=== PATIENT | female | born 1985 | race Caucasian/White ===

== ENCOUNTER 2018-04-15 15:11 | Observation (INO) ==
[2018-04-15] MEDS ORDERED: 0.9 % Sodium Chloride 1,000 ML IVC ONE (15:58)
[2018-04-15 16:03] LABS: Bilirubin,Urine Large (Negative); Blood,Urine Negative (Negative); Clarity,Urine Turbid (Clear); Color,Urine Orange (Yellow); Glucose,Urine (UA) Normal (Normal); Ketones,Urine Trace mg/dL (Negative); Leukocyte Esterase,Urine Moderate (Negative); Nitrite,Urine Negative (Negative); Protein,Urine Trace mg/dL (Neg-Trace); Specific Gravity,Urine 1.016 (1.010-1.025); Urobilinogen,Urine Normal (Normal)
[2018-04-15 16:05] LABS: Bacteria,Urine Many per hpf (None-Few); Hyaline Casts,Urine None Seen per lpf (None-Few); Squamous Epithelial Cell,Urine Moderate per lpf (None-Few)
[2018-04-15 16:16] LABS: RBC,Urine 0-3 per hpf (0-3)
[2018-04-15 16:19] LABS: Hematocrit 40.5 % (35.3-44.9); Hemoglobin 14.1 g/dL (11.5-15.4); Mean Corpuscular HGB Conc 34.8 g/dL (31.6-35.5); Mean Corpuscular Hemoglobin 33.1 pg (28.0-33.3); Mean Corpuscular Volume 95.1 fL (83.0-100.0); Mean Platelet Volume 10.5 fL (9.4-12.4); Platelet Count 411 K/mcL (140-400); Red Blood Count 4.26 M/mcL (3.82-4.97); Red Cell Distribution Width 14.7 % (11.5-14.5)
[2018-04-15 16:27] LABS: Prothrombin Time 11.4 Seconds (9.4-12.1)
[2018-04-15 16:51] LABS: Lymphocytes # 3.5 K/mcL (0.6-4.6); Monocytes # 0.3 K/mcL (0.0-1.3); Neutrophils # 3.5 K/mcL (1.6-8.9)
[2018-04-15 16:52] LABS: Platelet Estimate Normal (Normal); Reactive Lymphocytes Present (Not Present)
[2018-04-15 17:06] LABS: Hepatitis B Core IgM Nonreactive (Nonreactive); Hepatitis B Surface Antigen Nonreactive (Nonreactive); Hepatitis C Virus Antibody Nonreactive (Nonreactive)
[2018-04-15 17:08] LABS: Albumin 3.1 g/dL (3.5-5.7); Albumin/Globulin Ratio 0.8 (1.1-2.2); Alkaline Phosphatase 916 Units/L (34-104); Aspartate Amino Transferase 929 Units/L (13-39); BUN/Creatinine Ratio 11 (6-26); Bilirubin,Direct 6.3 mg/dL (0.0-0.2); Bilirubin,Indirect 3.5 mg/dL (0.0-1.2); Bilirubin,Total 9.8 mg/dL (0.3-1.0); Blood Urea Nitrogen 6 mg/dL (6-20); Calcium 8.5 mg/dL (8.6-10.3); Carbon Dioxide 27 mEq/L (23-29); Chloride 98 mEq/L (98-107); Globulin 4.1 g/dL (2.4-3.5); Glucose 102 mg/dL (70-105); Lipase 46 Units/L (11-82); Osmolality,Calculated 268 (280-300); Potassium 3.7 mEq/L (3.5-5.1); Sodium 130 mEq/L (136-145); Total Protein 7.2 g/dL (6.4-8.9); eGFR For Non-African Americans > 60 (> 60)
[2018-04-15 17:18] LABS: Hepatitis A Antibody IgM Reactive (Nonreactive)
[2018-04-15 17:20] LABS: Alanine Aminotransferase > 500 Units/L (7-52)
[2018-04-15] MEDS ORDERED: cephALEXin 250 MG CAPSULE PO ONE (17:37)
[2018-04-15] MEDS ORDERED: Ibuprofen 800 MG TABLET PO ONE (17:53)
[2018-04-15] MEDS ORDERED: Naloxone 0.4 MG/ML INJ IVP PRN (18:03)
[2018-04-15] MEDS ORDERED: Ibuprofen 400 MG TABLET PO PRN (18:03)
[2018-04-15] MEDS ORDERED: traMADol 50 MG TABLET PO PRN (18:03)
[2018-04-15] MEDS ORDERED: Ondansetron 4 MG/2 ML VIAL IVP PRN (18:07)
[2018-04-15] MEDS ORDERED: Promethazine 12.5 MG in 0.9 % Sodium Chloride 50 ML IVPB PRN (18:07)
[2018-04-15] MEDS ORDERED: Nicotine 21 MG PATCH.TD24 TD PRN (18:51)
--- NOTE | 2018-04-15 19:33 | Emergency Department Note ---
Disposition Clinical Impression: Hepatitis A, Nausea and vomiting, UTI (urinary tract infection) Disposition: Admitted As Inpatient Condition: Fair General Adult HPI - General Chief complaint: ED Abdominal Pain Stated complaint: Jaundice Time Seen by Provider: 04/15/18 15:38 Source: patient, family Limitations: no limitations - History of Present Illness Pain Scale: 5 - Related Data Home Medications Medication Instructions Recorded Confirmed RX: No Known Home Drugs 04/15/18 04/15/18 Allergies Allergy/AdvReac Type Severity Reaction Status Date / Time acetaminophen [From Tylenol] AdvReac Liver Verified 04/15/18 18:58 damage Past Medical History - Past Medical History Medical history: Reports: no medical history Psychiatric history: Reports: no psych history - Social History Smoking Status: Current every day smoker Smokeless Tobacco Status: No Alcohol use: Reports: rarely Drug use: Reports: methamphetamine, IV Drug Use Physical Exam - General Limitations: no limitations General appearance: alert, in no apparent distress Course Vital Signs Temperature 97.9 F 04/15/18 15:30 Pulse Rate 106 04/15/18 15:30 Respiratory Rate 14 04/15/18 15:30 Blood Pressure 129/82 04/15/18 15:30 O2 Sat by Pulse Oximetry 100 04/15/18 15:30 Temperature 98.8 F 04/15/18 20:20 Pulse Rate 91 04/15/18 20:20 Respiratory Rate 14 04/15/18 20:20 Blood Pressure 128/73 04/15/18 20:20 O2 Sat by Pulse Oximetry 97 04/15/18 21:06 Oxygen Delivery Oxygen Delivery Room Air Medical Decision Making - Lab Data Result diagrams: 04/15/18 16:05 04/15/18 16:05 Lab Results 04/15/18 04/15/18 04/15/18 Range/Units 15:51 15:51 16:05 WBC 7.3 (4.3-11.1) K/mcL RBC 4.26 (3.82-4.97) M/mcL Hgb 14.1 (11.5-15.4) g/dL Hct 40.5 (35.3-44.9) % MCV 95.1 (83.0-100.0) fL MCH 33.1 (28.0-33.3) pg MCHC 34.8 (31.6-35.5) g/dL RDW 14.7 H (11.5-14.5) % Plt Count 411 H (140-400) K/mcL MPV 10.5 (9.4-12.4) fL Seg Neutrophils % 48.0 % Lymphocytes % 48.0 % Monocytes % 4.0 % Neutrophils # 3.5 (1.6-8.9) K/mcL Lymphocytes # 3.5 (0.6-4.6) K/mcL Monocytes # 0.3 (0.0-1.3) K/mcL Reactive Lymphocytes Present A (Not Present) Platelet Estimate Normal (Normal) PT (9.4-12.1) Seconds INR Sodium (136-145) mEq/L Potassium (3.5-5.1) mEq/L Chloride (98-107) mEq/L Carbon Dioxide (23-29) mEq/L BUN (6-20) mg/dL Creatinine (0.60-1.20) mg/dL Est GFR ( Amer) (> 60) Est GFR (Non-Af Amer) (> 60) BUN/Creatinine Ratio (6-26) Glucose (70-105) mg/dL Calculated Osmolality (280-300) Calcium (8.6-10.3) mg/dL Total Bilirubin (0.3-1.0) mg/dL Direct Bilirubin (0.0-0.2) mg/dL Indirect Bilirubin (0.0-1.2) mg/dL AST (13-39) Units/L ALT (7-52) Units/L Alkaline Phosphatase (34-104) Units/L Serum Total Protein (6.4-8.9) g/dL Albumin (3.5-5.7) g/dL Globulin (2.4-3.5) g/dL Albumin/Globulin Ratio (1.1-2.2) Lipase (11-82) Units/L Urine Color [place] A (Yellow) Urine Clarity Turbid A (Clear) Urine pH 6.0 (5.0-8.0) pH Units Ur Specific [place] 1.016 (1.010-1.025) Urine Protein Trace (Neg-Trace) mg/dL Urine Glucose (UA) Normal (Normal) mg/dL Urine Ketones Trace H (Negative) mg/dL Urine Blood Negative (Negative) Urine Nitrite Negative (Negative) Urine Bilirubin Large H (Negative) Urine Urobilinogen Normal (Normal) mg/dL Ur Leukocyte Esterase Moderate H (Negative) Urine Microscopic RBC 0-3 (0-3) per hpf Urine Microscopic WBC 5-15 H (0-3) per hpf Ur Squamous Epith Cells Moderate H (None-Few) per lpf Urine Bacteria Many H (None-Few) per hpf Hyaline Casts None Seen (None-Few) per lpf Urine Test Negative (Negative) Hepatitis A IgM Ab (Nonreactive) Hep Bs Antigen (Nonreactive) Hep B Core IgM Ab (Nonreactive) Hepatitis C Ab Screen (Nonreactive) 04/15/18 04/15/18 04/15/18 Range/Units 16:05 16:05 16:05 WBC (4.3-11.1) K/mcL RBC (3.82-4.97) M/mcL Hgb (11.5-15.4) g/dL Hct (35.3-44.9) % MCV (83.0-100.0) fL MCH (28.0-33.3) pg MCHC (31.6-35.5) g/dL RDW (11.5-14.5) % Plt Count (140-400) K/mcL MPV (9.4-12.4) fL Seg Neutrophils % % Lymphocytes % % Monocytes % % Neutrophils # (1.6-8.9) K/mcL Lymphocytes # (0.6-4.6) K/mcL Monocytes # (0.0-1.3) K/mcL Reactive Lymphocytes (Not Present) Platelet Estimate (Normal) PT 11.4 (9.4-12.1) Seconds INR 1.0 Sodium 130 L (136-145) mEq/L Potassium 3.7 (3.5-5.1) mEq/L Chloride 98 (98-107) mEq/L Carbon Dioxide 27 (23-29) mEq/L BUN 6 (6-20) mg/dL Creatinine 0.57 L (0.60-1.20) mg/dL Est GFR ( Amer) > 60 (> 60) Est GFR (Non-Af Amer) > 60 (> 60) BUN/Creatinine Ratio 11 (6-26) Glucose 102 (70-105) mg/dL Calculated Osmolality 268 L (280-300) Calcium 8.5 L (8.6-10.3) mg/dL Total Bilirubin 9.8 H (0.3-1.0) mg/dL Direct Bilirubin 6.3 H (0.0-0.2) mg/dL Indirect Bilirubin 3.5 H (0.0-1.2) mg/dL AST 929 H (13-39) Units/L ALT > 500 H (7-52) Units/L Alkaline Phosphatase 916 H (34-104) Units/L Serum Total Protein 7.2 (6.4-8.9) g/dL Albumin 3.1 L (3.5-5.7) g/dL Globulin 4.1 H (2.4-3.5) g/dL Albumin/Globulin Ratio 0.8 L (1.1-2.2) Lipase 46 (11-82) Units/L Urine Color (Yellow) Urine Clarity (Clear) Urine pH (5.0-8.0) pH Units Ur Specific [place] (1.010-1.025) Urine Protein (Neg-Trace) mg/dL Urine Glucose (UA) (Normal) mg/dL Urine Ketones (Negative) mg/dL Urine Blood (Negative) Urine Nitrite (Negative) Urine Bilirubin (Negative) Urine Urobilinogen (Normal) mg/dL Ur Leukocyte Esterase (Negative) Urine Microscopic RBC (0-3) per hpf Urine Microscopic WBC (0-3) per hpf Ur Squamous Epith Cells (None-Few) per lpf Urine Bacteria (None-Few) per hpf Hyaline Casts (None-Few) per lpf Urine Test (Negative) Hepatitis A IgM Ab Reactive H (Nonreactive) Hep Bs Antigen Nonreactive (Nonreactive) Hep B Core IgM Ab Nonreactive (Nonreactive) Hepatitis C Ab Screen Nonreactive (Nonreactive) Attestation Statement - Attestation Attestation: I examined this patient and my medical decision-making was reviewed with the Resident Physician. I agree with the documented findings, disposition and jonathan atment plan as described except to the extent set forth below. [id number] time provided Patient presents with painless jaundice. 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 She is jaundiced on exam and appears somewhat thin and frail
--- NOTE | 2018-04-15 19:33 | Emergency Department Note ---
Disposition Clinical Impression: Hepatitis A Qualifiers: Hepatic coma status: without hepatic coma Qualified Code(s): B15.9 - Hepatitis A without hepatic coma Nausea and vomiting Qualifiers: Vomiting type: unspecified Vomiting Intractability: non-intractable Qualified Code(s): R11.2 - Nausea with vomiting, unspecified UTI (urinary tract infection) Qualifiers: Urinary tract infection type: site unspecified Hematuria presence: without hematuria Qualified Code(s): N39.0 - Urinary tract infection, site not specified Disposition: Admitted As Inpatient Condition: Good Referrals: Kyleigh Smith, [employer] [Primary Care Provider] - Forms: ED Satisfaction Letter, Work/School Release Time of Disposition: 17:39 Abdominal Pain HPI - General Chief Complaint: ED Abdominal Pain Stated Complaint: Jaundice Time Seen by Provider: 04/15/18 15:38 Source: patient, family Mode of arrival: ambulatory Limitations: no limitations Nursing Notes Reviewed: Yes Vital Signs Reviewed: Yes - History of Present Illness HPI Narrative: I examined this patient and my medical decision-making was reviewed with the Resident Physician. I agree with the documented findings, disposition and treatment plan as described except to the extent set forth below. Pain Scale: 5 - Related Data Allergies Allergy/AdvReac Type Severity Reaction Status Date / Time No Known Allergies Allergy Verified 04/15/18 15:30 All systems ED: reviewed and negative except as stated. Constitutional: Reports: fever Cardiovascular: Denies: chest pain Respiratory: Denies: cough, dyspnea, wheezes Gastrointestinal: Reports: abdominal pain, nausea, vomiting. Denies: diarrhea, constipation Genitourinary: Reports: other (dark urine). Denies: urgency, dysuria, frequency, hematuria Musculoskeletal: Denies: back pain Integumentary: Denies: rash Neurological: Denies: headache, weakness, numbness Abdominal Pain PMH - Past Medical History Medical history: Reports: no medical history Female Surgical History: Reports: no surgical history Psychiatric history: Reports: no psych history - Social History Smoking status: Current every day smoker Alcohol use: Reports: rarely Drug use: Reports: methamphetamine, IV Drug Use Physical Exam - General Limitations: no limitations General appearance: alert, in no apparent distress - Head Head exam: atraumatic, normocephalic, normal inspection - Eye Eye exam: Present: PERRL, EOMI, scleral icterus - ENT ENT exam: normal exam, normal oropharynx, mucous membranes moist - Neck Neck exam: Present: normal inspection, full ROM, trachea midline - Chest Chest inspection: Present: normal inspection, symmetric chest wall rise - Respiratory Respiratory exam: Present: normal lung sounds bilaterally - Cardiovascular Cardiovascular exam: Present: normal rhythm, tachycardia, normal heart sounds - Abdominal Exam Abdominal exam: Present: soft, tenderness (Mild left upper quadrant and epigastric tenderness. No right upper quadrant tenderness. Negative Tyler's, negative McBurney's). Absent: distention, guarding, rebound, rigidity - Extremities Exam Extremities exam: Present: normal inspection, full ROM. Absent: tenderness, pedal edema - Neurological Exam Neurological exam: Present: alert, oriented X3 - Psychiatric Psychiatric exam: Present: normal affect, normal mood - Skin Skin exam: Present: warm, dry, intact, other (Jaundice from top of head to abdomen) Course Course Narrative: Patient is tachycardic, has mildly dry mucous membranes. We will give the patient 1 L normal saline bolus. We will also give Phenergan for nausea. We will also obtain CBC, BMP, LFTs, lipase, hepatitis panel. Patient does have a history of IV drug use, currently concern for possible hepatitis C. Also concern for possible hepatitis A due to nausea and vomiting and fevers. She was agreeable with obtaining hepatitis panel. No concern for cholecystitis at this time as patient has no right upper quadrant pain, negative Tyler's sign. 17:42 labs show elevated AST, ALTs, total bili, indirect bili, direct bili, alkaline phosphatase. Hepatitis panel positive for hepatitis A. Offered admission for trending labs, fluids, nausea and vomiting. She was agreeable with this plan. Again, patient is no concerning right upper quadrant pain, negative Tyler sign. Do not feel that ultrasound of the right upper quadrant is necessary at this time especially in setting of positive hepatitis A panel. Patient also has evidence of UTI with moderate leukocyte esterase. We will treat with Keflex. We will also send for culture. Vital Signs Temperature 97.9 F 04/15/18 15:30 Pulse Rate 106 04/15/18 15:30 Respiratory Rate 14 04/15/18 15:30 Blood Pressure 129/82 04/15/18 15:30 O2 Sat by Pulse Oximetry 100 04/15/18 15:30 Temperature 97.9 F 04/15/18 15:44 Pulse Rate 83 04/15/18 18:11 Respiratory Rate 18 04/15/18 18:11 Blood Pressure 122/79 04/15/18 18:11 O2 Sat by Pulse Oximetry 100 04/15/18 18:11 Oxygen Delivery Oxygen Delivery Room Air Abdominal Pain - MDM Narrative Medical decision making narrative: Patient is tachycardic, has mildly dry mucous membranes. We will give the patient 1 L normal saline bolus. We will also give Phenergan for nausea. We will also obtain CBC, BMP, LFTs, lipase, hepatitis panel. Patient does have a history of IV drug use, currently concern for possible hepatitis C. Also concern for possible hepatitis A due to nausea and vomiting and fevers. She was agreeable with obtaining hepatitis panel. No concern for cholecystitis at this time as patient has no right upper quadrant pain, negative Tyler's sign. 17:42 labs show elevated AST, ALTs, total bili, indirect bili, direct bili, polo line phosphatase. Hepatitis panel positive for hepatitis A. Offered admission for trending labs, fluids, nausea and vomiting. She was agreeable with this plan. Again, patient is no concerning right upper quadrant pain, negative Tyler sign. Do not feel that ultrasound of the right upper quadrant is necessary at this time especially in setting of positive hepatitis A panel. Patient also has evidence of UTI with moderate leukocyte esterase. We will treat with Keflex. We will also send for culture. - Medical Records Medical records reviewed: Yes I reviewed the patient's medical records. - Lab Data Lab results reviewed: Yes I reviewed the patient's lab results. Result diagrams: 04/15/18 16:05 04/15/18 16:05 Lab Results 04/15/18 04/15/18 04/15/18 Range/Units 15:51 15:51 16:05 WBC 7.3 (4.3-11.1) K/mcL RBC 4.26 (3.82-4.97) M/mcL Hgb 14.1 (11.5-15.4) g/dL Hct 40.5 (35.3-44.9) % MCV 95.1 (83.0-100.0) fL MCH 33.1 (28.0-33.3) pg MCHC 34.8 (31.6-35.5) g/dL RDW 14.7 H (11.5-14.5) % Plt Count 411 H (140-400) K/mcL MPV 10.5 (9.4-12.4) fL Seg Neutrophils % 48.0 % Lymphocytes % 48.0 % Monocytes % 4.0 % Neutrophils # 3.5 (1.6-8.9) K/mcL Lymphocytes # 3.5 (0.6-4.6) K/mcL Monocytes # 0.3 (0.0-1.3) K/mcL Reactive Lymphocytes Present A (Not Present) Platelet Estimate Normal (Normal) PT (9.4-12.1) Seconds INR Sodium (136-145) mEq/L Potassium (3.5-5.1) mEq/L Chloride (98-107) mEq/L Carbon Dioxide (23-29) mEq/L BUN (6-20) mg/dL Creatinine (0.60-1.20) mg/dL Est GFR ( Amer) (> 60) Est GFR (Non-Af Amer) (> 60) BUN/Creatinine Ratio (6-26) Glucose (70-105) mg/dL Calculated Osmolality (280-300) Calcium (8.6-10.3) mg/dL Total Bilirubin (0.3-1.0) mg/dL Direct Bilirubin (0.0-0.2) mg/dL Indirect Bilirubin (0.0-1.2) mg/dL AST (13-39) Units/L ALT (7-52) Units/L Alkaline Phosphatase (34-104) Units/L Serum Total Protein (6.4-8.9) g/dL Albumin (3.5-5.7) g/dL Globulin (2.4-3.5) g/dL Albumin/Globulin Ratio (1.1-2.2) Lipase (11-82) Units/L Urine Color [place] A (Yellow) Urine Clarity Turbid A (Clear) Urine pH 6.0 (5.0-8.0) pH Units Ur Specific [place] 1.016 (1.010-1.025) Urine Protein Trace (Neg-Trace) mg/dL Urine Glucose (UA) Normal (Normal) mg/dL Urine Ketones Trace H (Negative) mg/dL Urine Blood Negative (Negative) Urine Nitrite Negative (Negative) Urine Bilirubin Large H (Negative) Urine Urobilinogen Normal (Normal) mg/dL Ur Leukocyte Esterase Moderate H (Negative) Urine Microscopic RBC 0-3 (0-3) per hpf Urine Microscopic WBC 5-15 H (0-3) per hpf Ur Squamous Epith Cells Moderate H (None-Few) per lpf Urine Bacteria Many H (None-Few) per hpf Hyaline Casts None Seen (None-Few) per lpf Urine Test Negative (Negative) Hepatitis A IgM Ab (Nonreactive) Hep Bs Antigen (Nonreactive) Hep B Core IgM Ab (Nonreactive) Hepatitis C Ab Screen (Nonreactive) 04/15/18 04/15/18 04/15/18 Range/Units 16:05 16:05 16:05 WBC (4.3-11.1) K/mcL RBC (3.82-4.97) M/mcL Hgb (11.5-15.4) g/dL Hct (35.3-44.9) % MCV (83.0-100.0) fL MCH (28.0-33.3) pg MCHC (31.6-35.5) g/dL RDW (11.5-14.5) % Plt Count (140-400) K/mcL MPV (9.4-12.4) fL Seg Neutrophils % % Lymphocytes % % Monocytes % % Neutrophils # (1.6-8.9) K/mcL Lymphocytes # (0.6-4.6) K/mcL Monocytes # (0.0-1.3) K/mcL Reactive Lymphocytes (Not Present) Platelet Estimate (Normal) PT 11.4 (9.4-12.1) Seconds INR 1.0 Sodium 130 L (136-145) mEq/L Potassium 3.7 (3.5-5.1) mEq/L Chloride 98 (98-107) mEq/L Carbon Dioxide 27 (23-29) mEq/L BUN 6 (6-20) mg/dL Creatinine 0.57 L (0.60-1.20) mg/dL Est GFR ( Amer) > 60 (> 60) Est GFR (Non-Af Amer) > 60 (> 60) BUN/Creatinine Ratio 11 (6-26) Glucose 102 (70-105) mg/dL Calculated Osmolality 268 L (280-300) Calcium 8.5 L (8.6-10.3) mg/dL Total Bilirubin 9.8 H (0.3-1.0) mg/dL Direct Bilirubin 6.3 H (0.0-0.2) mg/dL Indirect Bilirubin 3.5 H (0.0-1.2) mg/dL AST 929 H (13-39) Units/L ALT > 500 H (7-52) Units/L Alkaline Phosphatase 916 H (34-104) Units/L Serum Total Protein 7.2 (6.4-8.9) g/dL Albumin 3.1 L (3.5-5.7) g/dL Globulin 4.1 H (2.4-3.5) g/dL Albumin/Globulin Ratio 0.8 L (1.1-2.2) Lipase 46 (11-82) Units/L Urine Color (Yellow) Urine Clarity (Clear) Urine pH (5.0-8.0) pH Units Ur Specific [place] (1.010-1.025) Urine Protein (Neg-Trace) mg/dL Urine Glucose (UA) (Normal) mg/dL Urine Ketones (Negative) mg/dL Urine Blood (Negative) Urine Nitrite (Negative) Urine Bilirubin (Negative) Urine Urobilinogen (Normal) mg/dL Ur Leukocyte Esterase (Negative) Urine Microscopic RBC (0-3) per hpf Urine Microscopic WBC (0-3) per hpf Ur Squamous Epith Cells (None-Few) per lpf Urine Bacteria (None-Few) per hpf Hyaline Casts (None-Few) per lpf Urine Test (Negative) Hepatitis A IgM Ab Reactive H (Nonreactive) Hep Bs Antigen Nonreactive (Nonreactive) Hep B Core IgM Ab Nonreactive (Nonreactive) Hepatitis C Ab Screen Nonreactive (Nonreactive) S.B.A.R. - S.B.A.R. Situation: Demographics, MOA Background: Presenting Complaint, Relevant PMH, Meds, & Allergies Assessment: Vital Signs, Course and respsone to treatment, Exam Concerns, Patient/Family Expectation, Pertinant Lab Results Recommendation: Barrier(s) to disposition, Recommendation based on pending studies, treatments, or consults S.B.A.R. Report Given to: Dr. Ornelas accepts
--- NOTE | 2018-04-15 19:34 | Emergency Department Note ---
Disposition Clinical Impression: UTI (urinary tract infection) Hepatitis A Qualifiers: Hepatic coma status: without hepatic coma Qualified Code(s): B15.9 - Hepatitis A without hepatic coma Nausea and vomiting Qualifiers: Vomiting type: unspecified Vomiting Intractability: non-intractable Qualified Code(s): R11.2 - Nausea with vomiting, unspecified Disposition: Admitted As Inpatient Condition: Fair Time of Disposition: 20:37 Abdominal Pain HPI - General Chief Complaint: ED Abdominal Pain Stated Complaint: Jaundice Time Seen by Provider: 04/15/18 15:38 Source: patient, family Mode of arrival: ambulatory Limitations: no limitations Nursing Notes Reviewed: Yes Vital Signs Reviewed: Yes - History of Present Illness HPI Narrative: Ms. Ho is a 32yof with hx of IVDU (methamphetamine w. most recent use 3d ago) c/o upper abd pain, scleral icterus, generalized jaundice, and N/V. pt reports that she thought she had the flu last week, starting 04/07/19, says she had malaise, anorexia, fever/chills, JOSHUA, N/V, upper abd pain, and myalgias. She then noticed scleral icterus 5d ago as well as some mild discoloration of her skin. She also notes that she has been feeling somewhat SOB and lightheaded over the last few days, has not been eating well but has been trying to keep hydrated. Family urged her to come get checked out yesterday when they saw her jaundice. She denies CP, constipation, diarrhea, hematochezia/melena. Pt Subjective Complaint: abdominal pain, other (jaundice, N/V) Onset (ago): week(s) (1) Consistency: constant Location: LUQ, RUQ, epigastric Pain Severity: moderate Pain Scale: 5 Quality: dull Radiation: none Migration to: no migration Improves with: nothing Worsens with: nothing Context: other (IVDU - meth) Associated symptoms: Reports: nausea, vomiting, diarrhea, fever, chills, other (orange urine, now brown malodorous urine). Denies: hematemesis, hematochezia, melena Treatments prior to arrival: none - Related Data Home Medications Medication Instructions Recorded Confirmed RX: No Known Home Drugs 04/15/18 04/15/18 Allergies Allergy/AdvReac Type Severity Reaction Status Date / Time acetaminophen [From Tylenol] AdvReac Liver Verified 04/15/18 18:58 damage Review of Systems: As Per HPI Constitutional: Reports: fever, chills, other (generalized malaise) Eyes: Reports: other (scleral icterus) Cardiovascular: Denies: chest pain, edema, syncope Respiratory: Reports: cough (productive), dyspnea. Denies: wheezes, hemoptysis Gastrointestinal: Reports: abdominal pain, nausea, vomiting. Denies: diarrhea, constipation, hematemesis, melena, hematochezia Genitourinary: Reports: other (malodorous dark urine). Denies: dysuria, frequency Musculoskeletal: Reports: myalgia. Denies: joint swelling Integumentary: Reports: other (jaundice). Denies: rash, lesions, pruritus Neurological: Reports: headache, weakness (generalized) Abdominal Pain PMH - Past Medical History Medical history: Reports: no medical history Female Surgical History: Reports: no surgical history Psychiatric history: Reports: no psych history - Social History Smoking status: Current every day smoker Alcohol use: Reports: rarely Drug use: Reports: methamphetamine, IV Drug Use Physical Exam - General Limitations: no limitations General appearance: alert, in no apparent distress Course Vital Signs Temperature 97.9 F 04/15/18 15:30 Pulse Rate 106 04/15/18 15:30 Respiratory Rate 14 04/15/18 15:30 Blood Pressure 129/82 04/15/18 15:30 O2 Sat by Pulse Oximetry 100 04/15/18 15:30 Temperature 97.9 F 04/15/18 15:44 Pulse Rate 83 04/15/18 18:11 Respiratory Rate 18 04/15/18 18:11 Blood Pressure 122/79 04/15/18 18:11 O2 Sat by Pulse Oximetry 100 04/15/18 18:11 Oxygen Delivery Oxygen Delivery Room Air Abdominal Pain - Lab Data Result diagrams: 04/15/18 16:05 04/15/18 16:05 Lab Results 04/15/18 04/15/18 04/15/18 Range/Units 15:51 15:51 16:05 WBC 7.3 (4.3-11.1) K/mcL RBC 4.26 (3.82-4.97) M/mcL Hgb 14.1 (11.5-15.4) g/dL Hct 40.5 (35.3-44.9) % MCV 95.1 (83.0-100.0) fL MCH 33.1 (28.0-33.3) pg MCHC 34.8 (31.6-35.5) g/dL RDW 14.7 H (11.5-14.5) % Plt Count 411 H (140-400) K/mcL MPV 10.5 (9.4-12.4) fL Seg Neutrophils % 48.0 % Lymphocytes % 48.0 % Monocytes % 4.0 % Neutrophils # 3.5 (1.6-8.9) K/mcL Lymphocytes # 3.5 (0.6-4.6) K/mcL Monocytes # 0.3 (0.0-1.3) K/mcL Reactive Lymphocytes Present A (Not Present) Platelet Estimate Normal (Normal) PT (9.4-12.1) Seconds INR Sodium (136-145) mEq/L Potassium (3.5-5.1) mEq/L Chloride (98-107) mEq/L Carbon Dioxide (23-29) mEq/L BUN (6-20) mg/dL Creatinine (0.60-1.20) mg/dL Est GFR ( Amer) (> 60) Est GFR (Non-Af Amer) (> 60) BUN/Creatinine Ratio (6-26) Glucose (70-105) mg/dL Calculated Osmolality (280-300) Calcium (8.6-10.3) mg/dL Total Bilirubin (0.3-1.0) mg/dL Direct Bilirubin (0.0-0.2) mg/dL Indirect Bilirubin (0.0-1.2) mg/dL AST (13-39) Units/L ALT (7-52) Units/L Alkaline Phosphatase (34-104) Units/L Serum Total Protein (6.4-8.9) g/dL Albumin (3.5-5.7) g/dL Globulin (2.4-3.5) g/dL Albumin/Globulin Ratio (1.1-2.2) Lipase (11-82) Units/L Urine Color [place] A (Yellow) Urine Clarity Turbid A (Clear) Urine pH 6.0 (5.0-8.0) pH Units Ur Specific [place] 1.016 (1.010-1.025) Urine Protein Trace (Neg-Trace) mg/dL Urine Glucose (UA) Normal (Normal) mg/dL Urine Ketones Trace H (Negative) mg/dL Urine Blood Negative (Negative) Urine Nitrite Negative (Negative) Urine Bilirubin Large H (Negative) Urine Urobilinogen Normal (Normal) mg/dL Ur Leukocyte Esterase Moderate H (Negative) Urine Microscopic RBC 0-3 (0-3) per hpf Urine Microscopic WBC 5-15 H (0-3) per hpf Ur Squamous Epith Cells Moderate H (None-Few) per lpf Urine Bacteria Many H (None-Few) per hpf Hyaline Casts None Seen (None-Few) per lpf Urine Test Negative (Negative) Hepatitis A IgM Ab (Nonreactive) Hep Bs Antigen (Nonreactive) Hep B Core IgM Ab (Nonreactive) Hepatitis C Ab Screen (Nonreactive) 04/15/18 04/15/18 04/15/18 Range/Units 16:05 16:05 16:05 WBC (4.3-11.1) K/mcL RBC (3.82-4.97) M/mcL Hgb (11.5-15.4) g/dL Hct (35.3-44.9) % MCV (83.0-100.0) fL MCH (28.0-33.3) pg MCHC (31.6-35.5) g/dL RDW (11.5-14.5) % Plt Count (140-400) K/mcL MPV (9.4-12.4) fL Seg Neutrophils % % Lymphocytes % % Monocytes % % Neutrophils # (1.6-8.9) K/mcL Lymphocytes # (0.6-4.6) K/mcL Monocytes # (0.0-1.3) K/mcL Reactive Lymphocytes (Not Present) Platelet Estimate (Normal) PT 11.4 (9.4-12.1) Seconds INR 1.0 Sodium 130 L (136-145) mEq/L Potassium 3.7 (3.5-5.1) mEq/L Chloride 98 (98-107) mEq/L Carbon Dioxide 27 (23-29) mEq/L BUN 6 (6-20) mg/dL Creatinine 0.57 L (0.60-1.20) mg/dL Est GFR ( Amer) > 60 (> 60) Est GFR (Non-Af Amer) > 60 (> 60) BUN/Creatinine Ratio 11 (6-26) Glucose 102 (70-105) mg/dL Calculated Osmolality 268 L (280-300) Calcium 8.5 L (8.6-10.3) mg/dL Total Bilirubin 9.8 H (0.3-1.0) mg/dL Direct Bilirubin 6.3 H (0.0-0.2) mg/dL Indirect Bilirubin 3.5 H (0.0-1.2) mg/dL AST 929 H (13-39) Units/L ALT > 500 H (7-52) Units/L Alkaline Phosphatase 916 H (34-104) Units/L Serum Total Protein 7.2 (6.4-8.9) g/dL Albumin 3.1 L (3.5-5.7) g/dL Globulin 4.1 H (2.4-3.5) g/dL Albumin/Globulin Ratio 0.8 L (1.1-2.2) Lipase 46 (11-82) Units/L Urine Color (Yellow) Urine Clarity (Clear) Urine pH (5.0-8.0) pH Units Ur Specific [place] (1.010-1.025) Urine Protein (Neg-Trace) mg/dL Urine Glucose (UA) (Normal) mg/dL Urine Ketones (Negative) mg/dL Urine Blood (Negative) Urine Nitrite (Negative) Urine Bilirubin (Negative) Urine Urobilinogen (Normal) mg/dL Ur Leukocyte Esterase (Negative) Urine Microscopic RBC (0-3) per hpf Urine Microscopic WBC (0-3) per hpf Ur Squamous Epith Cells (None-Few) per lpf Urine Bacteria (None-Few) per hpf Hyaline Casts (None-Few) per lpf Urine Test (Negative) Hepatitis A IgM Ab Reactive H (Nonreactive) Hep Bs Antigen Nonreactive (Nonreactive) Hep B Core IgM Ab Nonreactive (Nonreactive) Hepatitis C Ab Screen Nonreactive (Nonreactive)
--- NOTE | 2018-04-15 19:44 | Internal Med History&Physical ---
Date of Encounter: 04/15/18 Time of Encounter: 18:33 Internal Medicine - H&P: HPI Chief complaint: Yellow skin Admitted From: Emergency Dept Plans for Post Hospital Care: Home History of present illness: Ms. Ho is a 32 year old female with no significant medical history presented to ED due to yellow skin and eyes. She was found to have acute hepatitis A and is to be placed in observation. Ms Ho stated that she has not felt well for the last few days to week. She could not get out of bed for 2 days. She had aches and chills. Has RUQ abd discomfort and back pain. No documented fever but did not take temp. Has a lot of nausea and vomited twice. No diarrhea. No one else is ill. Nothing has seemed to help. She has noticed increased yellowing of skin and eyes and was brought to ED by family. Hep A is positive. States she has an appetite today for the first time in a while. Ate [employer] on the way to ED. Past Med Surg Social Fam HX - Past Medical History Source: patient Medical history: no medical history Psychiatric history: no psych history - Past Surgical History Additional surgical history: [place] teeth - Social History Smoking Status: Current every day smoker Smokeless Tobacco Status: No Alcohol use: rarely Drug use: methamphetamine, IV Drug Use Current living situation: With Family - Family History Grandfather Living Status: Hx Family Cancer: Yes (Prostate and colon) Grandmother Hx Family Endocrine Disorder: Yes (DM) Internal Medicine - H&P: Meds Allergy/AdvReac Type Severity Reaction Status Date / Time No Known Allergies Allergy Verified 04/15/18 15:30 All Systems PM: A 10-system review of systems was performed and is negative for pertinent findings except as documented above in the HPI. - Constitutional Constitutional: anorexia, fatigue, malaise - EENT Eyes: no change in vision, no loss of vision Additional comments: Icterus Ears: no decreased hearing Nose, mouth and throat: dry mouth, no mouth pain - Cardiovascular Cardiovascular ROS IM: no chest pain, no dyspnea, no dyspnea on exertion, no orthopnea, no paroxysmal nocturnal dyspnea - Respiratory Respiratory: no dyspnea, no hemoptysis, no dyspnea on exertion, no wheezing, no chest congestion - Gastrointestinal Gastrointestinal: abdominal pain, nausea, vomiting, no hematemesis - Genitourinary Genitourinary: urinary frequency, no difficulty voiding - Musculoskeletal Musculoskeletal ROS IM: arthralgias, myalgias, no joint swelling - Integumentary Integumentary IM: jaundice, no new lesions, no rash - Neurological Neurological ROS: no abnormal gait, no paresthesias, no restless legs - Psychiatric Psychiatric: no depression, no difficulty concentrating - Endocrine Endocrine IM: no excessive sweating, no flushing - Hematologic/Lymphatic Hematologic/Lymphatic: no easy bleeding - Allergic/Immunologic Allergic/Immunologic: no tongue swelling, no wheezing - Constitutional Vitals: Temp Pulse Resp BP Pulse Ox 97.9 F 83 18 122/79 100 04/15/18 15:44 04/15/18 18:11 04/15/18 18:11 04/15/18 18:11 04/15/18 18:11 General appearance: Present: A&O X 3, pleasant, answers questions appropriately Exam: See below - Head Head exam: Present: atraumatic, normocephalic - Eye Eye exam: Present: EOMI, scleral icterus Pupils: Present: PERRL - ENT ENT exam: Present: mucous membranes moist Additional comments: Poor dentition - Neck Neck exam general surgery: Present: normal inspection. Absent: nuchal rigidity - Respiratory Respiratory exam: Present: CTAB. Absent: rales, rhonchi, wheezes - Cardiovascular Cardiovascular exam: Present: RRR. Absent: systolic murmur, tachycardia - GI/Abdominal GI/Abdominal exam: Present: normal bowel sounds, soft, tenderness Additional comments: Some RUQ discomfort without peritoneal signs. - Extremities Exam Extremities exam: Present: warm. Absent: tenderness - Neurological Exam Neurological exam: Present: alert, oriented X3, no focal deficits - Skin Skin exam: Present: dry, warm Additional comments: Jaundice Internal Med - H&P Results - Labs CBC & Chem 7: 04/15/18 16:05 04/15/18 16:05 Labs: Short CBC 04/15/18 Range/Units 16:05 WBC 7.3 (4.3-11.1) K/mcL Hgb 14.1 (11.5-15.4) g/dL Hct 40.5 (35.3-44.9) % Plt Count 411 H (140-400) K/mcL Neutrophils # 3.5 (1.6-8.9) K/mcL BMP 04/15/18 16:05 Sodium 130 L Potassium 3.7 Chloride 98 Carbon Dioxide 27 BUN 6 Creatinine 0.57 L Glucose 102 Calcium 8.5 L Liver Function 04/15/18 Range/Units 16:05 Total Bilirubin 9.8 H (0.3-1.0) mg/dL Direct Bilirubin 6.3 H (0.0-0.2) mg/dL AST 929 H (13-39) Units/L ALT > 500 H (7-52) Units/L Alkaline Phosphatase 916 H (34-104) Units/L Albumin 3.1 L (3.5-5.7) g/dL Urine 04/15/18 Range/Units 15:51 Urine Color [place] A (Yellow) Urine Clarity Turbid A (Clear) Urine pH 6.0 (5.0-8.0) pH Units Ur Specific [place] 1.016 (1.010-1.025) Urine Protein Trace (Neg-Trace) mg/dL Urine Glucose (UA) Normal (Normal) mg/dL - Assessment and plan (1) Hepatitis A Current Visit: Yes Status: Acute Assessment and plan: Pt with acute hepatitis A. B and C are negative at this time Bili and transaminases are elevated She has some nausea. Denies pruritus. Supportive care. IV fluids, antiemetics. Motrin for discomfort. Recheck labs tomorrow. If stable anticipate d/c. Qualifiers: Hepatic coma status: without hepatic coma Qualified Code(s): B15.9 - Hepatitis A without hepatic coma (2) UTI (urinary tract infection) Current Visit: Yes Status: Suspected Assessment and plan: Pt with possible UTI. Given Keflex in ED. Ceftriaxone ordered. Qualifiers: Urinary tract infection type: acute cystitis Hematuria presence: without hematuria Qualified Code(s): N30.00 - Acute cystitis without hematuria (3) Methamphetamine addiction Current Visit: Yes Status: Chronic Assessment and plan: Last use was 3 days ago. Cessation counselling. (4) Tobacco abuse Current Visit: Yes Status: Chronic Assessment and plan: Cessation counselling. PRN patch. - Time Spent With Patient Total time spent is greater than 50% in coordination of care (as documented) at patient's floor/unit and/or counseling patient:
[2018-04-15] MEDS: Ringers Solution, Lactated 1,000 ML IVC SCH (19:45)
--- NOTE | 2018-04-15 20:40 | Emergency Department Note ---
Disposition Clinical Impression: UTI (urinary tract infection) Hepatitis A Qualifiers: Hepatic coma status: without hepatic coma Qualified Code(s): B15.9 - Hepatitis A without hepatic coma Nausea and vomiting Qualifiers: Vomiting type: unspecified Vomiting Intractability: non-intractable Qualified Code(s): R11.2 - Nausea with vomiting, unspecified Disposition: Admitted As Inpatient Condition: Good General Adult HPI - General Chief complaint: ED Abdominal Pain Stated complaint: Jaundice Time Seen by Provider: 04/15/18 15:38 Source: patient, family Mode of arrival: ambulatory Limitations: no limitations - History of Present Illness Pain Scale: 6 - Related Data Home Medications Medication Instructions Recorded Confirmed No Known Home Drugs 04/15/18 04/15/18 Allergies Allergy/AdvReac Type Severity Reaction Status Date / Time acetaminophen [From Tylenol] AdvReac Liver Verified 04/15/18 18:58 damage Constitutional: Reports: fever Eyes: Reports: other (scleral icterus) Cardiovascular: Denies: chest pain Respiratory: Denies: cough, dyspnea, wheezes Gastrointestinal: Reports: abdominal pain, nausea, vomiting. Denies: diarrhea, constipation Genitourinary: Reports: other (dark urine). Denies: urgency, dysuria, frequency, hematuria Musculoskeletal: Denies: back pain Integumentary: Denies: rash Neurological: Denies: headache, weakness, numbness Past Medical History - Past Medical History Medical history: Reports: no medical history Psychiatric history: Reports: no psych history - Social History Smoking Status: Current every day smoker Smokeless Tobacco Status: No Alcohol use: Reports: rarely Drug use: Reports: methamphetamine, IV Drug Use Physical Exam - General Limitations: no limitations General appearance: alert, in no apparent distress Course Vital Signs Temperature 97.9 F 04/15/18 15:30 Pulse Rate 106 04/15/18 15:30 Respiratory Rate 14 04/15/18 15:30 Blood Pressure 129/82 04/15/18 15:30 O2 Sat by Pulse Oximetry 100 04/15/18 15:30 Temperature 97.9 F 04/15/18 15:44 Pulse Rate 83 04/15/18 18:11 Respiratory Rate 18 04/15/18 18:11 Blood Pressure 122/79 04/15/18 18:11 O2 Sat by Pulse Oximetry 100 04/15/18 18:11 Oxygen Delivery Oxygen Delivery Room Air Medical Decision Making - Lab Data Result diagrams: 04/15/18 16:05 04/15/18 16:05 Lab Results 04/15/18 04/15/18 04/15/18 Range/Units 15:51 15:51 16:05 WBC 7.3 (4.3-11.1) K/mcL RBC 4.26 (3.82-4.97) M/mcL Hgb 14.1 (11.5-15.4) g/dL Hct 40.5 (35.3-44.9) % MCV 95.1 (83.0-100.0) fL MCH 33.1 (28.0-33.3) pg MCHC 34.8 (31.6-35.5) g/dL RDW 14.7 H (11.5-14.5) % Plt Count 411 H (140-400) K/mcL MPV 10.5 (9.4-12.4) fL Seg Neutrophils % 48.0 % Lymphocytes % 48.0 % Monocytes % 4.0 % Neutrophils # 3.5 (1.6-8.9) K/mcL Lymphocytes # 3.5 (0.6-4.6) K/mcL Monocytes # 0.3 (0.0-1.3) K/mcL Reactive Lymphocytes Present A (Not Present) Platelet Estimate Normal (Normal) PT (9.4-12.1) Seconds INR Sodium (136-145) mEq/L Potassium (3.5-5.1) mEq/L Chloride (98-107) mEq/L Carbon Dioxide (23-29) mEq/L BUN (6-20) mg/dL Creatinine (0.60-1.20) mg/dL Est GFR ( Amer) (> 60) Est GFR (Non-Af Amer) (> 60) BUN/Creatinine Ratio (6-26) Glucose (70-105) mg/dL Calculated Osmolality (280-300) Calcium (8.6-10.3) mg/dL Total Bilirubin (0.3-1.0) mg/dL Direct Bilirubin (0.0-0.2) mg/dL Indirect Bilirubin (0.0-1.2) mg/dL AST (13-39) Units/L ALT (7-52) Units/L Alkaline Phosphatase (34-104) Units/L Serum Total Protein (6.4-8.9) g/dL Albumin (3.5-5.7) g/dL Globulin (2.4-3.5) g/dL Albumin/Globulin Ratio (1.1-2.2) Lipase (11-82) Units/L Urine Color [place] A (Yellow) Urine Clarity Turbid A (Clear) Urine pH 6.0 (5.0-8.0) pH Units Ur Specific [place] 1.016 (1.010-1.025) Urine Protein Trace (Neg-Trace) mg/dL Urine Glucose (UA) Normal (Normal) mg/dL Urine Ketones Trace H (Negative) mg/dL Urine Blood Negative (Negative) Urine Nitrite Negative (Negative) Urine Bilirubin Large H (Negative) Urine Urobilinogen Normal (Normal) mg/dL Ur Leukocyte Esterase Moderate H (Negative) Urine Microscopic RBC 0-3 (0-3) per hpf Urine Microscopic WBC 5-15 H (0-3) per hpf Ur Squamous Epith Cells Moderate H (None-Few) per lpf Urine Bacteria Many H (None-Few) per hpf Hyaline Casts None Seen (None-Few) per lpf Urine Test Negative (Negative) Hepatitis A IgM Ab (Nonreactive) Hep Bs Antigen (Nonreactive) Hep B Core IgM Ab (Nonreactive) Hepatitis C Ab Screen (Nonreactive) 04/15/18 04/15/18 04/15/18 Range/Units 16:05 16:05 16:05 WBC (4.3-11.1) K/mcL RBC (3.82-4.97) M/mcL Hgb (11.5-15.4) g/dL Hct (35.3-44.9) % MCV (83.0-100.0) fL MCH (28.0-33.3) pg MCHC (31.6-35.5) g/dL RDW (11.5-14.5) % Plt Count (140-400) K/mcL MPV (9.4-12.4) fL Seg Neutrophils % % Lymphocytes % % Monocytes % % Neutrophils # (1.6-8.9) K/mcL Lymphocytes # (0.6-4.6) K/mcL Monocytes # (0.0-1.3) K/mcL Reactive Lymphocytes (Not Present) Platelet Estimate (Normal) PT 11.4 (9.4-12.1) Seconds INR 1.0 Sodium 130 L (136-145) mEq/L Potassium 3.7 (3.5-5.1) mEq/L Chloride 98 (98-107) mEq/L Carbon Dioxide 27 (23-29) mEq/L BUN 6 (6-20) mg/dL Creatinine 0.57 L (0.60-1.20) mg/dL Est GFR ( Amer) > 60 (> 60) Est GFR (Non-Af Amer) > 60 (> 60) BUN/Creatinine Ratio 11 (6-26) Glucose 102 (70-105) mg/dL Calculated Osmolality 268 L (280-300) Calcium 8.5 L (8.6-10.3) mg/dL Total Bilirubin 9.8 H (0.3-1.0) mg/dL Direct Bilirubin 6.3 H (0.0-0.2) mg/dL Indirect Bilirubin 3.5 H (0.0-1.2) mg/dL AST 929 H (13-39) Units/L ALT > 500 H (7-52) Units/L Alkaline Phosphatase 916 H (34-104) Units/L Serum Total Protein 7.2 (6.4-8.9) g/dL Albumin 3.1 L (3.5-5.7) g/dL Globulin 4.1 H (2.4-3.5) g/dL Albumin/Globulin Ratio 0.8 L (1.1-2.2) Lipase 46 (11-82) Units/L Urine Color (Yellow) Urine Clarity (Clear) Urine pH (5.0-8.0) pH Units Ur Specific [place] (1.010-1.025) Urine Protein (Neg-Trace) mg/dL Urine Glucose (UA) (Normal) mg/dL Urine Ketones (Negative) mg/dL Urine Blood (Negative) Urine Nitrite (Negative) Urine Bilirubin (Negative) Urine Urobilinogen (Normal) mg/dL Ur Leukocyte Esterase (Negative) Urine Microscopic RBC (0-3) per hpf Urine Microscopic WBC (0-3) per hpf Ur Squamous Epith Cells (None-Few) per lpf Urine Bacteria (None-Few) per hpf Hyaline Casts (None-Few) per lpf Urine Test (Negative) Hepatitis A IgM Ab Reactive H (Nonreactive) Hep Bs Antigen Nonreactive (Nonreactive) Hep B Core IgM Ab Nonreactive (Nonreactive) Hepatitis C Ab Screen Nonreactive (Nonreactive) Attestation Statement - Attestation Attestation: The history, physical exam, and medical decision making was performed by the medical student either while I was physically present and actively involved or I personally re-performed the exam and medical decision making. I have verified the accuracy of the medical student's documentation with regards to the history, physical exam findings, and medical decision making.
[2018-04-16] MEDS: Ringers Solution, Lactated 1,000 ML IVC SCH (03:35)
[2018-04-16 05:05] LABS: Basophils # 0.1 K/mcL (0.0-0.2); Basophils % 0.8 %; Eosinophils # 0.1 K/mcL (0.0-0.6); Eosinophils % 1.4 %; Hematocrit 36.7 % (35.3-44.9); Hemoglobin 12.8 g/dL (11.5-15.4); Immature Granulocytes % 0.3 % (0-4); Lymphocytes # 3.1 K/mcL (0.6-4.6); Lymphocytes % 48.7 %; Mean Corpuscular HGB Conc 34.9 g/dL (31.6-35.5); Mean Corpuscular Hemoglobin 33.2 pg (28.0-33.3); Mean Corpuscular Volume 95.3 fL (83.0-100.0); Mean Platelet Volume 11.2 fL (9.4-12.4); Monocytes # 0.8 K/mcL (0.0-1.3); Monocytes % 12.6 %; Neutrophils # 2.3 K/mcL (1.6-8.9); Platelet Count 349 K/mcL (140-400); Red Blood Count 3.85 M/mcL (3.82-4.97); Red Cell Distribution Width 15.1 % (11.5-14.5); Segmented Neutrophils % 36.2 %
[2018-04-16 05:16] LABS: Prothrombin Time 11.2 Seconds (9.4-12.1)
[2018-04-16 05:29] LABS: Platelet Estimate Normal (Normal); Reactive Lymphocytes Present (Not Present)
[2018-04-16 05:30] LABS: Anisocytosis 1+ (Not Present)
[2018-04-16 05:34] LABS: Alanine Aminotransferase > 500 Units/L (7-52); Albumin 2.7 g/dL (3.5-5.7); Albumin/Globulin Ratio 0.8 (1.1-2.2); Alkaline Phosphatase 749 Units/L (34-104); Aspartate Amino Transferase 586 Units/L (13-39); BUN/Creatinine Ratio 17 (6-26); Bilirubin,Total 7.8 mg/dL (0.3-1.0); Blood Urea Nitrogen 8 mg/dL (6-20); Calcium 8.4 mg/dL (8.6-10.3); Carbon Dioxide 26 mEq/L (23-29); Chloride 105 mEq/L (98-107); Globulin 3.3 g/dL (2.4-3.5); Glucose 92 mg/dL (70-105); Magnesium 2.1 mg/dL (1.6-2.6); Osmolality,Calculated 276 (280-300); Potassium 4.4 mEq/L (3.5-5.1); Sodium 134 mEq/L (136-145); eGFR For Non-African Americans > 60 (> 60)
--- NOTE | 2018-04-16 07:50 | Discharge Summary ---
- NOTES TO OUTPATIENT PROVIDER Notes to Outpatient Provider: Admitted with acute hep A. Improving. Orders not resulted at time of discharge: Pending orders 04/15/18 17:39 Culture,Urine [RM] Stat Date of Encounter: 04/16/18 Time of Encounter: 08:57 - Discharge Diagnosis (1) Hepatitis A Priority: Primary Status: Acute Qualifiers: Hepatic coma status: without hepatic coma Qualified Code(s): B15.9 - Hepatitis A without hepatic coma (2) UTI (urinary tract infection) Priority: Secondary Status: Suspected Qualifiers: Urinary tract infection type: acute cystitis Hematuria presence: without hematuria Qualified Code(s): N30.00 - Acute cystitis without hematuria (3) Methamphetamine addiction Priority: Secondary Status: Chronic (4) Tobacco abuse Priority: Secondary Status: Chronic Hospital course: Ms. Ho is a 32 year old female with no medical history presented to ED with jaundice and icterus. She was found to have acute hep A and placed in observation. Ms Ho was placed in observation. She was started on IV fluids and nausea control. Her labs were improving today and she is able to tolerate a diet. She is afebrile and ready for discharge home. Discharge discussed with: patient Time spent discussing smoking cessation with patient: 3 to 10 minutes - Time Spent with Patient Total time spent providing and/or coordinating discharge services: - Discharge Medications Prescriptions: Ondansetron ODT [Zofran ODT] 4 mg SL Q6HR #20 tab.rapdis Home Medications: Ondansetron ODT [Zofran ODT] 4 mg SL Q6HR #20 tab.rapdis 04/16/18 [Rx] Allergies/Adverse Reactions: Allergy/AdvReac Type Severity Reaction Status Date / Time acetaminophen [From Tylenol] AdvReac Liver Verified 04/15/18 18:58 damage Date of admission: 04/15/18 18:35 Primary care physician: Kyleigh Smith CNP Consults: 04/15/18 17:49 Consult to Gastroenterology [CONS] Stat Consulting Provider: Gastroenterology Kyra Reason for Consult: hepatitis A, elevated transaminases and bili Call Completed: No Discharging clinician: Logan Ramirez Anticipated date of discharge: 04/16/18 - Constitutional Vitals: Temp Pulse Resp BP Pulse Ox 98.1 F 74 15 109/70 99 10/27/18 03:02 04/16/18 03:02 04/16/18 03:02 04/16/18 03:02 04/16/18 03:02 General appearance: Present: A&O X 3, pleasant, answers questions appropriately Exam: See below - Head Head exam: Present: normocephalic - Eye Eye exam: Present: EOMI, scleral icterus - ENT ENT exam: Present: mucous membranes moist - Respiratory Respiratory exam: Present: CTAB. Absent: rales, rhonchi, wheezes - Cardiovascular Cardiovascular exam: Present: RRR. Absent: tachycardia - GI/Abdominal GI/Abdominal exam: Present: soft, tenderness (RUQ area) - Extremities Exam Extremities exam: Present: warm. Absent: tenderness - Neurological Exam Neurological exam: Present: alert, oriented X3 - Skin Skin exam: Present: dry (Jaundice still present), warm - Patient Status Disposition: Home, Self-Care Condition: Good Functional capacity at discharge: independent ambulation Overall status at discharge: patient is progressing back to baseline - Discharge Instructions Instructions: How to Stop Smoking (DC), Viral Hepatitis A (DC), Methamphetamine Abuse (DC) Follow Up With: Kyleigh Smith, [employer] [Primary Care Provider] - - Diet and Activity Activity: increase activity as tolerated Diet: advance to your usual diet
[2018-04-16 08:22] VITALS: BP 107/71
[2018-04-16] MEDS ORDERED: cefTRIAXone 1,000 MG in Water for inj. (sterile) 20 ML 10 ML IVP SCH (09:00)
--- NOTE | 2018-04-16 10:47 | Gastroenterology Consult Note ---
Date of Encounter: 04/16/18 Time of Encounter: 10:00 - Time Spent With Patient Total time spent is greater than 50% in coordination of care (as documented) at patient's floor/unit and/or counseling patient: GI History of Present Illness - Data of Consult Consult date: 04/16/18 Requesting Physician: Logan Ramirez DO - Consult Narrative Reason for consult: CONSULT WAS CANCELLED BY DR RAMIREZ History of present illness: Ms. Ho is a 32 year old female Past Med Surg Social Fam HX - Past Medical History Medical history: no medical history Psychiatric history: no psych history - Past Surgical History Additional surgical history: [place] teeth - Social History Smoking Status: Current every day smoker Smokeless Tobacco Status: No Alcohol use: rarely Drug use: methamphetamine, IV Drug Use - Family History Grandfather Living Status: Hx Family Cancer: Yes (Prostate and colon) Grandmother Hx Family Endocrine Disorder: Yes (DM) - Constitutional Vitals: Temp Pulse Resp BP Pulse Ox 98.3 F 77 16 107/71 100 04/16/18 08:20 04/16/18 08:20 04/16/18 08:20 04/16/18 08:20 04/16/18 08:20 Results - Labs CBC & Chem 7: 04/16/18 04:34 04/16/18 04:34 Labs: Last Result Calcium 8.4 mg/dL (8.6-10.3) L 04/16/18 04:34 Entire Visit Hgb 12.8 g/dL (11.5-15.4) 04/16/18 04:34 Hct 36.7 % (35.3-44.9) 04/16/18 04:34 PT 11.2 Seconds (9.4-12.1) 04/16/18 04:34 Total Bilirubin 7.8 mg/dL (0.3-1.0) H 04/16/18 04:34 AST 586 Units/L (13-39) H 04/16/18 04:34 ALT > 500 Units/L (7-52) H 04/16/18 04:34 Lipase 46 Units/L (11-82) 04/15/18 16:05 - ABG ABG results: PT/INR, D-dimer PT 11.2 Seconds (9.4-12.1) 04/16/18 04:34 Consult Discharge Plan - Plan Instructions: How to Stop Smoking (DC), Viral Hepatitis A (DC), Methamphetamine Abuse (DC) Referrals: Kyleigh Smith CNP [Primary Care Provider] - Prescriptions: Ondansetron ODT [Zofran ODT] 4 mg SL Q6HR #20 tab.izabeldis
== END 2018-04-16 11:30 | disposition home or self-care (01) ==
LOC: EMEROOARM 15:11 → 3ANU 15:11 → SUATTDRO 18:35 → 3ANU 18:59
PROVIDERS: ADMIT Internal Medicine Nephrology; ATTEND Internal Medicine